=== PATIENT | female | born 1975 | race Caucasian/White ===

== ENCOUNTER 2018-06-21 14:11 | Emergency (ER) | payer OTHER, SELFPAY ==
[2018-06-21 15:45] VITALS: BP 94/62; PULSE 65; RESP 14; TEMP 36.8; O2SAT 99; BMI 19.3
[2018-06-21 17:25] VITALS: BP 89/59; PULSE 73; RESP 16; O2SAT 98
[2018-06-21 17:46] LABS: Add Manual Diff / Slide Review NO; Basophils Absolute Auto 100 /uL (0-100); Basophils Percent Auto 0.9 % (0-2); Eosinophils Absolute Auto 200 /uL (0-450); Eosinophils Percent Auto 2.2 % (2-4); Hematocrit 38.3 % (36-46); Hemoglobin 12.8 g/dL (12.0-16.0); Lymphocytes Absolute Auto 2000 /uL (1100-4500); Lymphocytes Percent Auto 26.2 % (25-40); Mean Corpuscular HGB Conc 33.4 % (30-36); Mean Corpuscular Hemoglobin 32.1 PG (26-34); Monocytes Absolute Auto 600 /uL (0-900); Monocytes Percent Auto 8.4 % (3-14); Neutrophils Absolute Auto 4800 /uL (1500-7000); Neutrophils Percent Auto 62.3 % (50-75); Platelet Count 229 X10^3/uL (150-400); Red Blood Cell Count 3.99 X10^6/uL (4.0-5.2); White Blood Cell Count 7.7 X10^3/uL (4.5-11.0)
[2018-06-21 17:49] LABS: INR 1.1 (0.9-1.3); Prothrombin Time 12.2 SECONDS (10.1-12.7)
[2018-06-21 17:52] LABS: PTT Partial Thromboplastin Tim 29 SECONDS (26.4-36.2)
[2018-06-21 17:55] LABS: Alanine Aminotransferase 40 IU/L (9-52); Albumin 4.2 g/dL (3.5-5.0); Albumin Globulin Ratio 1.6 (1.0-2.8); Alkaline Phosphatase 39 U/L (38-126); Aspartate Aminotransferase 23 IU/L (14-36); BUN Creatinine Ratio 13.8 (6-22); Bilirubin Total 0.3 mg/dL (0.2-1.3); Blood Urea Nitrogen 11 mg/dL (7-17); Calcium 9.2 mg/dL (8.4-10.2); Carbon Dioxide 23 mmol/L (22-32); Chloride 106 mmol/L (98-107); Estimated Glomerular Filt Rate > 60.0 mL/min (>60); Globulin 2.7 g/dL (1.7-4.1); Glucose 97 mg/dL (70-100); HEMOLYSIS < 15 (0-50); Potassium 3.7 mmol/L (3.4-5.1); Sodium 138 mmol/L (137-145); Total Protein 6.9 g/dL (6.3-8.2)
[2018-06-21 18:04] VITALS: BP 100/66; PULSE 70; RESP 14; O2SAT 98
--- NOTE | 2018-06-21 18:15 | ED.FEMALEGU ---
HPI - Female Genitourinary General Chief complaint: Vaginal Bleeding Stated complaint: states unusual bleeding and abdominal cramping Time Seen by Provider: 06/21/18 18:09 Source: patient and family Mode of arrival: ambulatory Limitations: no limitations History of Present Illness HPI Narrative: 43F Smoker with history of ovarian cyst presents with her daughter and a chief complaint of vaginal bleeding for the past week. She says it is light and certainly is not bleeding through a pad per hour or even close. She is not dizzy or weak or lightheaded. She denies chest pain or shortness of breath. She denies any vaginal discharge, dysuria, frequency or urgency. She does have some vague suprapubic discomfort that has set in over the past day or 2. She denies any new medications or alterations in hormonal therapies. Her last period was 2 and half weeks ago and was normal. MD Complaint: vaginal bleeding Location: suprapubic Quality: Aching Duration: intermittent Relieving factors: none Exacerbating factors: movement Vaginal discharge: blood Patient : No Associated symptoms: denies other symptoms Related Data Home Medications Medication Instructions Recorded Confirmed methocarbamol 1 tab PO DAILY 06/21/18 06/21/18 tramadol 1 tab PO Q4-8H PRN 06/21/18 06/21/18 Previous Rx's Medication Instructions Recorded ketorolac 10 mg PO Q6H PRN #14 tab 06/21/18 Allergies Allergy/AdvReac Type Severity Reaction Status Date / Time latex Allergy Mild Hives Verified 06/21/18 19:18 Review of Systems Constitutional Denies chills, Denies fever(s), Denies lethargy and Denies weakness Eyes Denies change in vision, Denies eye discharge, Denies irritation and Denies loss of vision ENT Ears, Nose, Mouth, and Throat: Denies change in voice, Denies neck pain and Denies sore throat Cardiovascular Denies chest pain, Denies irregular heart rhythm, Denies lightheadedness, Denies palpitations, Denies dyspnea, Denies dyspnea on exertion and Denies orthopnea Respiratory Denies cough, Denies dyspnea, Denies dyspnea on exertion and Denies wheezing Gastrointestinal Gastrointestinal: Denies abdominal pain, Denies change in bowel habits, Denies diarrhea, Denies nausea and Denies vomiting Genitourinary Reports abnormal vaginal bleeding, Denies hematuria, Denies flank pain, Denies urinary incontinence and Denies urinary urgency Musculoskeletal Denies neck pain Integumentary/Breasts Denies pruritus, Denies erythema, Denies rash and Denies wounds Neurologic Denies confusion, Denies loss of vision and Denies weakness Psychiatric Denies anxiety, Denies confusion, Denies depression, Denies homicidal ideation and Denies suicidal ideation Endocrine Denies palpitations Hematologic/Lymphatic Denies easy bruising Allergic/Immunologic Denies wheezing [facility] Medical History Migraine (Acute) Social History Smoking Status: Current every day smoker Social History Smoking Status: Current every day smoker Exam Narrative Exam Narrative: 43-year-old female appears stated age. In no obvious or significant distress Initial Vital Signs Initial Vital Signs: Vital Signs Temperature 98.3 F 06/21/18 15:45 Pulse Rate 65 06/21/18 15:45 Respiratory Rate 14 06/21/18 15:45 Blood Pressure 94/62 06/21/18 15:45 Pulse Oximetry 99 06/21/18 15:45 Const General: cooperative and well developed Nutritional Appearance: well nourished Orientation: alert, awake, oriented x3 and not confused HENMT Head: normal to inspection Nose: external nose normal Face and sinus: normal facial exam Eyes General: appearance normal, both eyes and all related structures Pupils: PERRL EOM: EOM intact bilaterally Chest Chest: normal inspection of the chest Resp Effort & Inspection: normal respiratory effort, able to speak in complete sentences, no respiratory distress and no use of accessory muscles Auscultation: clear to auscultation bilaterally, no rales, no rhonchi and no wheezes Cardio Rate: regular rate Rhythm: regular rhythm Heart Sounds: no click, no gallops, no murmurs and no rubs Pulses: normal peripheral pulses GI Inspection: non-distended Palpation: soft, no hepatosplenomegaly, No guarding, No pulsatile mass and No tender Auscultation: normal bowel sounds Back/Spine/Pelvis Back: No CVA tenderness Cervical Spine: cervical ROM normal and No pain with cervical ROM Thoracic/Lumbar Spine: thoracic and lumbar spine normal to inspection Skin General: no rashes or lesions noted, No jaundice and No petechiae Neuro General: alert, oriented x3, gait normal and no focal motor deficits Speech: speech normal Psych Appearance: well kempt Mental Status: mental status grossly normal Attitude: cooperative Thought Content: normal and suicidality Judgment: judgment good Course Orders Ordered: ED Orders 06/21/18 16:35 Complete Blood Count AUTO DIFF Stat Comprehensive Metabolic Panel Stat Partial Thromboplastin Time Stat Prothrombin Time INR Stat 06/21/18 18:15 US pelvic complete Stat 06/21/18 18:25 Urine Culture Stat Urine Microscopic Stat Vital Signs - 8 hr 06/21/18 17:25 06/21/18 18:04 06/21/18 19:47 Pulse Rate 73 70 60 Respiratory Rate 16 14 14 Blood Pressure [Right Arm] 89/59 L 100/66 99/61 Pulse Oximetry 98 98 99 MDM - Female Genitourinary Medical Records Attestation: I reviewed the patient's medical records. Lab Data Attestation: I reviewed the patient's lab results. Result diagrams: 06/21/18 16:35 06/21/18 16:35 Lab Results 06/21/18 06/21/18 06/21/18 Range/Units 16:35 16:35 16:35 WBC 7.7 (4.5-11.0) X10^3/uL RBC 3.99 L (4.0-5.2) X10^6/uL Hgb 12.8 (12.0-16.0) g/dL Hct 38.3 (36-46) % MCV 96.0 (80-100) fL MCH 32.1 (26-34) PG MCHC 33.4 (30-36) % RDW 13.0 (11.6-14.8) % Plt Count 229 (150-400) X10^3/uL Neut % (Auto) 62.3 (50-75) % Lymph % (Auto) 26.2 (25-40) % [facility] % (Auto) 8.4 (3-14) % Eos % (Auto) 2.2 (2-4) % Baso % (Auto) 0.9 (0-2) % Neut # (Auto) 4800 (8676-1828) /uL Lymph # (Auto) 2000 (1530-9795) /uL [facility] # (Auto) 600 (0-900) /uL Eos # (Auto) 200 (0-450) /uL Baso # (Auto) 100 (0-100) /uL PT 12.2 (10.1-12.7) SECONDS INR 1.1 (0.9-1.3) APTT 29 (26.4-36.2) SECONDS Sodium 138 (137-145) mmol/L Potassium 3.7 (3.4-5.1) mmol/L Chloride 106 (98-107) mmol/L Carbon Dioxide 23 (22-32) mmol/L BUN 11 (7-17) mg/dL Creatinine 0.80 (0.52-1.04) mg/dL Estimated GFR > 60.0 (>60) mL/min BUN/Creatinine Ratio 13.8 (6-22) Glucose 97 (70-100) mg/dL Calcium 9.2 (8.4-10.2) mg/dL Total Bilirubin 0.3 (0.2-1.3) mg/dL AST 23 (14-36) IU/L ALT 40 (9-52) IU/L Alkaline Phosphatase 39 (38-126) U/L Total Protein 6.9 (6.3-8.2) g/dL Albumin 4.2 (3.5-5.0) g/dL Globulin 2.7 (1.7-4.1) g/dL Albumin/Globulin Ratio 1.6 (1.0-2.8) Urine RBC (0-5/HPF) Urine WBC (0-5/HPF) Ur Squamous Epith Cells Amorphous Sediment Urine Bacteria (None) Ur Culture Indicated? 06/21/18 Range/Units 18:25 WBC (4.5-11.0) X10^3/uL RBC (4.0-5.2) X10^6/uL Hgb (12.0-16.0) g/dL Hct (36-46) % MCV (80-100) fL MCH (26-34) PG MCHC (30-36) % RDW (11.6-14.8) % Plt Count (150-400) X10^3/uL Neut % (Auto) (50-75) % Lymph % (Auto) (25-40) % [facility] % (Auto) (3-14) % Eos % (Auto) (2-4) % Baso % (Auto) (0-2) % Neut # (Auto) (5878-1858) /uL Lymph # (Auto) (1059-1080) /uL [facility] # (Auto) (0-900) /uL Eos # (Auto) (0-450) /uL Baso # (Auto) (0-100) /uL PT (10.1-12.7) SECONDS INR (0.9-1.3) APTT (26.4-36.2) SECONDS Sodium (137-145) mmol/L Potassium (3.4-5.1) mmol/L Chloride (98-107) mmol/L Carbon Dioxide (22-32) mmol/L BUN (7-17) mg/dL Creatinine (0.52-1.04) mg/dL Estimated GFR (>60) mL/min BUN/Creatinine Ratio (6-22) Glucose (70-100) mg/dL Calcium (8.4-10.2) mg/dL Total Bilirubin (0.2-1.3) mg/dL AST (14-36) IU/L ALT (9-52) IU/L Alkaline Phosphatase (38-126) U/L Total Protein (6.3-8.2) g/dL Albumin (3.5-5.0) g/dL Globulin (1.7-4.1) g/dL Albumin/Globulin Ratio (1.0-2.8) Urine RBC 0-1/hpf (0-5/HPF) Urine WBC 0-1/hpf (0-5/HPF) Ur Squamous Epith Cells 0-1 /hpf Amorphous Sediment 3+ Urine Bacteria Many (>30) H (None) Ur Culture Indicated? Specimen cultured Point of Care Testing Test Results Negative Urine Dip Bedside Urine Glucose Negative Bedside Urine Bilirubin - Negative Bedside Urine Ketone - Negative Urine Specific [place] 1.015 Bedside Urine Occult Blood + Bedside Urine pH 8.0 Bedside Urine Protein - Negative Bedside Urine Urobilinogen - Negative Bedside Urine Nitrite - Negative Bedside Urine Leukocytes - Negative Esterase Imaging Data US Pelvis: Radiologist's impression: [address] [address] Ultrasound Report Signed Patient: Gabrielle Fragoso GMR#: [id number] : 1975Acct:[id number] Age/Sex: 43 / FDate of Service: 06/21/18 Loc: ED Accession Number: [id number] Procedure: US pelvic complete Ordering Provider: Cade Houser D.O. PROCEDURE: US PELVIC COMPLETE INDICATIONS: VAGINAL BLEEDING TECHNIQUE: Real-time scanning was performed of the pelvic organs, with image documentation. Additional endovaginal scanning was necessary due to incomplete visualization of the adnexal and endometrial structures by transabdominal scanning. COMPARISON: None. FINDINGS: Transabdominal scanning: Limited scanning through the kidneys shows no hydronephrosis. No pathologic free abdominal or pelvic fluid. Endovaginal scanning: Uterus: Uterus is normal in size at 8.0 x 4.2 x 5.9 cm. The endometrium measures 6 mm in combined thickness. Ovaries: Right ovary measures 4.0 x 3.1 x 4.2 cm. There is an avascular 3.2 cm hypoechoic right ovarian mass versus complicated cyst. Left ovary measures 3.6 x 2.5 x 3.4 cm. Similar to the right side, there is a avascular 3.0 cm hypoechoic left ovarian mass versus complicated cyst. IMPRESSION: Pelvic ultrasound without acute abnormalities. Bilateral ovarian avascular hypoechoic lesions which may represent a solid mass versus complicated cyst versus hemorrhagic cyst. These measure 3.2 cm on the right and 3.0 cm on the left. Recommend followup pelvic ultrasound in 6-12 weeks to document stability versus resolution. Dictated by: Sulaiman Freeman M.D. on 06/21/2018 at 20:11 Approved by: Sulaiman Freeman M.D. on 06/21/2018 at 20:14 Discharge Plan Departure Patient Disposition: Home Clinical Impression: Vaginal bleeding Discharge Date/Time: 06/21/18 20:25 Interventions: ED Discharge Assessment Last Done: 06/21/18 20:24 Instructions: DI for Vaginal Bleeding Activity Restrictions/Additional Instructions: *You have been diagnosed with [ vaginal bleeding and pelvic pain] *What to do: *Take medications as directed: your prescription has been electronically transmitted to the [facility] at your request *Follow up with your primary care provider in 2-3 days, call for an appointment. Let them know you were seen in the Emergency Department and that we ask that you be seen in follow up. Ultrasound notes ovarian cyst vs. mass and radiology recommends a repeat Ultrasound in 6-12 weeks to evaluate for resolution *Return to ER if you should have any new, worsening or concerning symptoms Prescriptions: New ketorolac 10 mg tablet 10 mg PO Q6H PRN (Reason: pain) Qty: 14 RF: 0 No Action methocarbamol 500 mg tablet 1 tab PO DAILY RF: 0 tramadol 50 mg tablet 1 tab PO Q4-8H PRN (Reason: Pain (Scale Score 7-10)) RF: 0
[2018-06-21 18:36] LABS: RBC Urine 0-1/HPF (0-5/HPF)
[2018-06-21 18:37] LABS: Amorphous Sediment Urine 3+; Bacteria Urine Many (>30); Culture Indicated Urine Specimen Cultured; Squamous Epithelial Cell Urine 0-1 /HPF; WBC Urine 0-1/HPF (0-5/HPF)
[2018-06-21 19:47] VITALS: BP 99/61; PULSE 60; RESP 14; O2SAT 99
--- NOTE | 2018-06-21 20:21 | ED_ITS ---
HPI - Female Genitourinary General Chief complaint: Vaginal Bleeding Stated complaint: states unusual bleeding and abdominal cramping Time Seen by Provider: 06/21/18 18:09 Source: patient and family Mode of arrival: ambulatory Limitations: no limitations History of Present Illness HPI Narrative: 43F Smoker with history of ovarian cyst presents with her daughter and a chief complaint of vaginal bleeding for the past week. She says it is light and certainly is not bleeding through a pad per hour or even close. She is not dizzy or weak or lightheaded. She denies chest pain or shortness of breath. She denies any vaginal discharge, dysuria, frequency or urgency. She does have some vague suprapubic discomfort that has set in over the past day or 2. She denies any new medications or alterations in hormonal therapies. Her last period was 2 and half weeks ago and was normal. MD Complaint: vaginal bleeding Location: suprapubic Quality: Aching Duration: intermittent Relieving factors: none Exacerbating factors: movement Vaginal discharge: blood Patient : No Associated symptoms: denies other symptoms Related Data Home Medications Medication Instructions Recorded Confirmed methocarbamol 1 tab PO DAILY 06/21/18 06/21/18 tramadol 1 tab PO Q4-8H PRN 06/21/18 06/21/18 Previous Rx's Medication Instructions Recorded ketorolac 10 mg PO Q6H PRN #14 tab 06/21/18 Allergies Allergy/AdvReac Type Severity Reaction Status Date / Time latex Allergy Mild Hives Verified 06/21/18 19:18 Review of Systems Constitutional Denies chills, Denies fever(s), Denies lethargy and Denies weakness Eyes Denies change in vision, Denies eye discharge, Denies irritation and Denies loss of vision ENT Ears, Nose, Mouth, and Throat: Denies change in voice, Denies neck pain and Erich es sore throat Cardiovascular Denies chest pain, Denies irregular heart rhythm, Denies lightheadedness, Denies palpitations, Denies dyspnea, Denies dyspnea on exertion and Denies orthopnea Respiratory Denies cough, Denies dyspnea, Denies dyspnea on exertion and Denies wheezing Gastrointestinal Gastrointestinal: Denies abdominal pain, Denies change in bowel habits, Denies diarrhea, Denies nausea and Denies vomiting Genitourinary Reports abnormal vaginal bleeding, Denies hematuria, Denies flank pain, Denies urinary incontinence and Denies urinary urgency Musculoskeletal Denies neck pain Integumentary/Breasts Denies pruritus, Denies erythema, Denies rash and Denies wounds Neurologic Denies confusion, Denies loss of vision and Denies weakness Psychiatric Denies anxiety, Denies confusion, Denies depression, Denies homicidal ideation and Denies suicidal ideation Endocrine Denies palpitations Hematologic/Lymphatic Denies easy bruising Allergic/Immunologic Denies wheezing PFSH Medical History Migraine (Acute) Social History Smoking Status: Current every day smoker Social History Smoking Status: Current every day smoker Exam Narrative Exam Narrative: 43-year-old female appears stated age. In no obvious or significant distress Initial Vital Signs Initial Vital Signs: Vital Signs Temperature 98.3 F 06/21/18 15:45 Pulse Rate 65 06/21/18 15:45 Respiratory Rate 14 06/21/18 15:45 Blood Pressure 94/62 06/21/18 15:45 Pulse Oximetry 99 06/21/18 15:45 Const General: cooperative and well developed Nutritional Appearance: well nourished Orientation: alert, awake, oriented x3 and not confused HENMT Head: normal to inspection Nose: external nose normal Face and sinus: normal facial exam Eyes General: appearance normal, both eyes and all related structures Pupils: PERRL EOM: EOM intact bilaterally Chest Chest: normal inspection of the chest Resp Effort & Inspection: normal respiratory effort, able to speak in complete sentences, no respiratory distress and no use of accessory muscles Auscultation: clear to auscultation bilaterally, no rales, no rhonchi and no wheezes Cardio Rate: regular rate Rhythm: regular rhythm Heart Sounds: no click, no gallops, no murmurs and no rubs Pulses: normal peripheral pulses GI Inspection: non-distended Palpation: soft, no hepatosplenomegaly, No guarding, No pulsatile mass and No tender Auscultation: normal bowel sounds Back/Spine/Pelvis Back: No CVA tenderness Cervical Spine: cervical ROM normal and No pain with cervical ROM Thoracic/Lumbar Spine: thoracic and lumbar spine normal to inspection Skin General: no rashes or lesions noted, No jaundice and No petechiae Neuro General: alert, oriented x3, gait normal and no focal motor deficits Speech: speech normal Psych Appearance: well kempt Mental Status: mental status grossly normal Attitude: cooperative Thought Content: normal and suicidality Judgment: judgment good Course Orders Ordered: ED Orders 06/21/18 16:35 Complete Blood Count AUTO DIFF Stat Comprehensive Metabolic Panel Stat Partial Thromboplastin Time Stat Prothrombin Time INR Stat 06/21/18 18:15 US pelvic complete Stat 06/21/18 18:25 Urine Culture Stat Urine Microscopic Stat Vital Signs - 8 hr 06/21/18 17:25 06/21/18 18:04 06/21/18 19:47 Pulse Rate 73 70 60 Respiratory Rate 16 14 14 Blood Pressure [Right Arm] 89/59 L 100/66 99/61 Pulse Oximetry 98 98 99 MDM - Female Genitourinary Medical Records Attestation: I reviewed the patient's medical records. Lab Data Attestation: I reviewed the patient's lab results. Result diagrams: 06/21/18 16:35 06/21/18 16:35 Lab Results 06/21/18 06/21/18 06/21/18 Range/Units 16:35 16:35 16:35 WBC 7.7 (4.5-11.0) X10^3/uL RBC 3.99 L (4.0-5.2) X10^6/uL Hgb 12.8 (12.0-16.0) g/dL Hct 38.3 (36-46) % MCV 96.0 (80-100) fL MCH 32.1 (26-34) PG MCHC 33.4 (30-36) % RDW 13.0 (11.6-14.8) % Plt Count 229 (150-400) X10^3/uL Neut % (Auto) 62.3 (50-75) % Lymph % (Auto) 26.2 (25-40) % [place] % (Auto) 8.4 (3-14) % Eos % (Auto) 2.2 (2-4) % Baso % (Auto) 0.9 (0-2) % Neut # (Auto) 4800 (8228-4593) /uL Lymph # (Auto) 2000 (0764-0003) /uL [place] # (Auto) 600 (0-900) /uL Eos # (Auto) 200 (0-450) /uL Baso # (Auto) 100 (0-100) /uL PT 12.2 (10.1-12.7) SECONDS INR 1.1 (0.9-1.3) APTT 29 (26.4-36.2) SECONDS Sodium 138 (137-145) mmol/L Potassium 3.7 (3.4-5.1) mmol/L Chloride 106 (98-107) mmol/L Carbon Dioxide 23 (22-32) mmol/L BUN 11 (7-17) mg/dL Creatinine 0.80 (0.52-1.04) mg/dL Estimated GFR > 60.0 (>60) mL/min BUN/Creatinine Ratio 13.8 (6-22) Glucose 97 (70-100) mg/dL Calcium 9.2 (8.4-10.2) mg/dL Total Bilirubin 0.3 (0.2-1.3) mg/dL AST 23 (14-36) IU/L ALT 40 (9-52) IU/L Alkaline Phosphatase 39 (38-126) U/L Total Protein 6.9 (6.3-8.2) g/dL Albumin 4.2 (3.5-5.0) g/dL Globulin 2.7 (1.7-4.1) g/dL Albumin/Globulin Ratio 1.6 (1.0-2.8) Urine RBC (0-5/HPF) Urine WBC (0-5/HPF) Ur Squamous Epith Cells Amorphous Sediment Urine Bacteria (None) Ur Culture Indicated? 06/21/18 Range/Units 18:25 WBC (4.5-11.0) X10^3/uL RBC (4.0-5.2) X10^6/uL Hgb (12.0-16.0) g/dL Hct (36-46) % MCV (80-100) fL MCH (26-34) PG MCHC (30-36) % RDW (11.6-14.8) % Plt Count (150-400) X10^3/uL Neut % (Auto) (50-75) % Lymph % (Auto) (25-40) % [place] % (Auto) (3-14) % Eos % (Auto) (2-4) % Baso % (Auto) (0-2) % Neut # (Auto) (8018-9318) /uL Lymph # (Auto) (9209-2950) /uL [place] # (Auto) (0-900) /uL Eos # (Auto) (0-450) /uL Baso # (Auto) (0-100) /uL PT (10.1-12.7) SECONDS INR (0.9-1.3) APTT (26.4-36.2) SECONDS Sodium (137-145) mmol/L Potassium (3.4-5.1) mmol/L Chloride (98-107) mmol/L Carbon Dioxide (22-32) mmol/L BUN (7-17) mg/dL Creatinine (0.52-1.04) mg/dL Estimated GFR (>60) mL/min BUN/Creatinine Ratio (6-22) Glucose (70-100) mg/dL Calcium (8.4-10.2) mg/dL Total Bilirubin (0.2-1.3) mg/dL AST (14-36) IU/L ALT (9-52) IU/L Alkaline Phosphatase (38-126) U/L Total Protein (6.3-8.2) g/dL Albumin (3.5-5.0) g/dL Globulin (1.7-4.1) g/dL Albumin/Globulin Ratio (1.0-2.8) Urine RBC 0-1/hpf (0-5/HPF) Urine WBC 0-1/hpf (0-5/HPF) Ur Squamous Epith Cells 0-1 /hpf Amorphous Sediment 3+ Urine Bacteria Many (>30) H (None) Ur Culture Indicated? Specimen cultured Point of Care Testing Test Results Negative Urine Dip Bedside Urine Glucose Negative Bedside Urine Bilirubin - Negative Bedside Urine Ketone - Negative Urine Specific [place] 1.015 Bedside Urine Occult Blood + Bedside Urine pH 8.0 Bedside Urine Protein - Negative Bedside Urine Urobilinogen - Negative Bedside Urine Nitrite - Negative Bedside Urine Leukocytes - Negative Esterase Imaging Data US Pelvis: Radiologist's impression: [address] [address] Ultrasound Report Signed Patient: Gabrielle Fragoso GMR#: [id number] : 1975Acct:[id number] Age/Sex: 43 / FDate of Service: 06/21/18 Loc: ED Accession Number: [id number] Procedure: US pelvic complete Ordering Provider: Cade Houser D.O. PROCEDURE: US PELVIC COMPLETE INDICATIONS: VAGINAL BLEEDING TECHNIQUE: Real-time scanning was performed of the pelvic organs, with image documentation. Additional endovaginal scanning was necessary due to incomplete visualization of the adnexal and endometrial structures by transabdominal scanning. COMPARISON: None. FINDINGS: Transabdominal scanning: Limited scanning through the kidneys shows no hydronephrosis. No pathologic free abdominal or pelvic fluid. Endovaginal scanning: Uterus: Uterus is normal in size at 8.0 x 4.2 x 5.9 cm. The endometrium measures 6 mm in combined thickness. Ovaries: Right ovary measures 4.0 x 3.1 x 4.2 cm. There is an avascular 3.2 cm hypoechoic right ovarian mass versus complicated cyst. Left ovary measures 3.6 x 2.5 x 3.4 cm. Similar to the right side, there is a avascular 3.0 cm hypoechoic left ovarian mass versus complicated cyst. IMPRESSION: Pelvic ultrasound without acute abnormalities. Bilateral ovarian avascular hypoechoic lesions which may represent a solid mass versus complicated cyst versus hemorrhagic cyst. These measure 3.2 cm on the right and 3.0 cm on the left. Recommend followup pelvic ultrasound in 6-12 weeks to document stability versus resolution. Dictated by: Sulaiman Freeman M.D. on 06/21/2018 at 20:11 Approved by: Sulaiman Freeman M.D. on 06/21/2018 at 20:14 Discharge Plan Departure Patient Disposition: Home Clinical Impression: Vaginal bleeding Discharge Date/Time: 06/21/18 20:25 Interventions: ED Discharge Assessment Last Done: 06/21/18 20:24 Instructions: DI for Vaginal Bleeding Activity Restrictions/Additional Instructions: *You have been diagnosed with [ vaginal bleeding and pelvic pain] *What to do: *Take medications as directed: your prescription has been electronically transmitted to the [facility] at your request *Follow up with your primary care provider in 2-3 days, call for an appointment. Let them know you were seen in the Emergency Department and that we ask that you be seen in follow up. Ultrasound notes ovarian cyst vs. mass and radiology recommends a repeat Ultrasound in 6-12 weeks to evaluate for resolution *Return to ER if you should have any new, worsening or concerning symptoms Prescriptions: New ketorolac 10 mg tablet 10 mg PO Q6H PRN (Reason: pain) Qty: 14 RF: 0 No Action methocarbamol 500 mg tablet 1 tab PO DAILY RF: 0 tramadol 50 mg tablet 1 tab PO Q4-8H PRN (Reason: Pain (Scale Score 7-10)) RF: 0
== END 2018-06-21 20:25 | disposition home or self-care (01) ==
PROVIDERS: Emergency Medicine; Emergency Provider Emergency Medicine
DX: N93.9 Abnormal uterine and vaginal bleeding, unspecified (principal)
CPT/HCPCS: 36591; 76830; 76856; 80053; 81003; 81015; 81025; 85025; 85610; 85730; 87077; 87086; 87186; 99283; 99284

== ENCOUNTER → 2018-08-02 15:30 | Outpatient (CLI) | payer OTHER, SELFPAY ==
--- NOTE | 2018-08-02 | DI.US.S_ITS ---
PROCEDURE: US PELVIC COMPLETE INDICATIONS: Unspecified ovarian cyst, right side TECHNIQUE: Real-time scanning was performed of the pelvic organs, with image documentation. Additional endovaginal scanning was necessary due to incomplete visualization of the adnexal and endometrial structures by transabdominal scanning. COMPARISON: [facility], , US PELVIC COMPLETE, 06/21/2018, 17:37. FINDINGS: Transabdominal scanning: Limited scanning through the kidneys shows no hydronephrosis. No pathologic free abdominal or pelvic fluid. Endovaginal scanning: Uterus: Uterus is normal in size at 5.0 x 4.0 by 8.3 cm. The endometrium measures 7.8 mm in combined thickness. Ovaries: Right ovary measures 2.4 x 2.7 x 3.2 cm, and contains a solid complex masslike structure that measures up to 2.5 x 1.9 x 2.1 cm previously measuring 3.2 x 3.0 x 3.1 cm. This may represent an involuting hemorrhagic ovarian cyst that appears solid. He left ovary measures 4.1 x 2.4 x 3.8 cm and also contains a solid-appearing mass without internal or elevated peripheral vascularity measuring up to 3.0 x 2.5 x 2.4 cm. This previously measured 3.0 x 2.2 x 2.2 cm and therefore has not definitely improved or worsened in appearance. IMPRESSION: Followup assessment of the bilateral ovarian complex possibly solid masses is recommended in 6-8 weeks. If these do not significantly improved bilaterally further then gynecologic consultation is recommended. Excisional biopsy may be necessary. The right-sided lesion has definitely reduced in size, the left sided lesion has not changed. Dictated by: Jovan Schuster M.D. on 08/02/2018 at 17:25 Approved by: Jovan Schuster M.D. on 08/02/2018 at 17:27
== END ==
PROVIDERS: PCP Nurse Practitioner Family; Visit Provider Family Medicine
DX: N83.9 Noninflammatory disorder of ovary, fallopian tube and broad ligament, unspecified (principal)
CPT/HCPCS: 76856

== ENCOUNTER → 2019-12-18 11:58 | Outpatient (CLI) | payer OTHER, SELFPAY | PROVIDERS: PCP Nurse Practitioner Family; Visit Provider Physician Assistant | DX: R30.0 Dysuria (principal) | CPT/HCPCS: 87086 ==

== ENCOUNTER → 2021-01-15 12:20 | Outpatient (CLI) | payer OTHER, SELFPAY | PROVIDERS: PCP Nurse Practitioner Family; Visit Provider Nurse Practitioner Family | DX: N34.3 Urethral syndrome, unspecified (principal); N89.8 Other specified noninflammatory disorders of vagina | CPT/HCPCS: 87086; 87210 ==

== ENCOUNTER → 2021-08-29 15:02 | Outpatient (CLI) | payer OTHER, SELFPAY ==
[2021-08-29 17:56] LABS: Cholesterol 208 mg/dL (140-199); HDL Cholesterol 51 mg/dL (40-60); LDL Cholesterol Calculated 126 mg/dL (<100); Triglycerides 156 mg/dL (35-150)
[2021-08-29 18:25] LABS: TSH w/ Reflex to FT4 0.77 uIU/mL (0.47-4.68)
== END ==
PROVIDERS: PCP Family Medicine; Referring Provider Family Medicine; Visit Provider Family Medicine
DX: E78.2 Mixed hyperlipidemia (principal); F41.9 Anxiety disorder, unspecified; G43.009 Migraine without aura, not intractable, without status migrainosus
CPT/HCPCS: 36415; 80061; 84443

== ENCOUNTER → 2022-07-06 11:17 | Outpatient (CLI) | payer OTHER, SELFPAY | PROVIDERS: PCP Family Medicine; Visit Provider Nurse Practitioner Family | DX: J02.9 Acute pharyngitis, unspecified (principal) | CPT/HCPCS: 87070 ==

== ENCOUNTER → 2022-10-16 07:07 | Outpatient (CLI) | payer OTHER, SELFPAY ==
[2022-10-16 09:15] LABS: Add Manual Diff / Slide Review NO; Basophils Absolute Auto 100 /uL (0-100); Basophils Percent Auto 0.9 % (0-2); Eosinophils Absolute Auto 200 /uL (0-450); Eosinophils Percent Auto 2.1 % (2-4); Hematocrit 37.3 % (36-46); Hemoglobin 13.1 g/dL (12.0-16.0); Lymphocytes Absolute Auto 1900 /uL (1100-4500); Lymphocytes Percent Auto 19.7 % (25-40); Mean Corpuscular Hemoglobin 32.3 PG (26-34); Mean Corpuscular Volume 92.2 fL (80-100); Monocytes Absolute Auto 1000 /uL (0-900); Monocytes Percent Auto 10.3 % (3-14); Neutrophils Absolute Auto 6400 /uL (1500-7000); Platelet Count 353 X10^3/uL (150-400); Red Blood Cell Count 4.05 X10^6/uL (4.0-5.2); Red Cell Distribution Width 13.4 % (11.6-14.8); White Blood Cell Count 9.6 X10^3/uL (4.5-11.0)
[2022-10-16 09:41] LABS: Alanine Aminotransferase 48 IU/L (<35); Albumin 4.3 g/dL (3.5-5.0); Albumin Globulin Ratio 1.7 (1.0-2.8); Alkaline Phosphatase 55 U/L (38-126); Aspartate Aminotransferase 43 IU/L (14-36); Bilirubin Total 0.5 mg/dL (0.2-1.3); Blood Urea Nitrogen 14 mg/dL (7-17); Calcium 9.4 mg/dL (8.4-10.2); Carbon Dioxide 22 mmol/L (22-32); Chloride 107 mmol/L (98-107); Cholesterol 193 mg/dL (140-199); Estimated Glomerular Filt Rate > 60 mL/min (>60); Globulin 2.6 g/dL (1.7-4.1); Glucose 81 mg/dL (70-100); HDL Cholesterol 44 mg/dL (40-60); HEMOLYSIS < 15 (0-50); LDL Cholesterol Calculated 124 mg/dL (<100); Potassium 4.2 mmol/L (3.4-5.1); Sodium 139 mmol/L (137-145); Total Protein 6.9 g/dL (6.3-8.2); Triglycerides 126 mg/dL (35-150)
[2022-10-17 12:04] LABS: Interpretation Negative (Negative)
== END ==
PROVIDERS: PCP Family Medicine; Referring Provider Family Medicine; Visit Provider Family Medicine
DX: D72.819 Decreased white blood cell count, unspecified (principal); E78.2 Mixed hyperlipidemia; F41.9 Anxiety disorder, unspecified; N93.9 Abnormal uterine and vaginal bleeding, unspecified; K21.9 Gastro-esophageal reflux disease without esophagitis; R10.9 Unspecified abdominal pain; R14.3 Flatulence
CPT/HCPCS: 36415; 80053; 80061; 83013; 85025

== ENCOUNTER → 2022-10-30 14:38 | Outpatient (CLI) | payer OTHER, SELFPAY ==
[2022-10-30 17:02] LABS: TSH w/ Reflex to FT4 0.63 uIU/mL (0.47-4.68)
[2022-10-31 17:28] LABS: Follicle Stimulating Hormone 35.2 mIU/mL
[2022-11-04 19:14] LABS: Estrogen 90 pg/mL (.)
[2022-11-05 08:43] LABS: Percent Free Testosterone 0.77 % (0.50-2.80); Testosterone Free 0.09 ng/dL (0.10-0.85); Testosterone Total 11.1 ng/dL (.)
[2022-11-07 14:36] LABS: % Free Progesterone 2.1 % (.); Free Progesterone <0.21 ng/dL (.); Progesterone, Serum <10 ng/dL (.)
== END ==
PROVIDERS: PCP Family Medicine; Referring Provider Family Medicine; Visit Provider Family Medicine
DX: N93.9 Abnormal uterine and vaginal bleeding, unspecified (principal); R23.2 Flushing; E78.2 Mixed hyperlipidemia; G43.009 Migraine without aura, not intractable, without status migrainosus
CPT/HCPCS: 36415; 82672; 83001; 84144; 84402; 84403; 84443; 84999

== ENCOUNTER → 2022-12-11 15:54 | Outpatient (CLI) | payer OTHER, SELFPAY ==
[2022-12-11 17:19] LABS: Alanine Aminotransferase 26 IU/L (<35); Albumin Globulin Ratio 1.5 (1.0-2.8); Alkaline Phosphatase 37 U/L (38-126); Aspartate Aminotransferase 29 IU/L (14-36); BUN Creatinine Ratio 12.5 (6-22); Bilirubin Total 0.4 mg/dL (0.2-1.3); Blood Urea Nitrogen 12 mg/dL (7-17); Calcium 8.9 mg/dL (8.4-10.2); Carbon Dioxide 19 mmol/L (22-32); Chloride 111 mmol/L (98-107); Estimated Glomerular Filt Rate > 60 mL/min (>60); Globulin 2.7 g/dL (1.7-4.1); Glucose 101 mg/dL (70-100); HEMOLYSIS < 15 (0-50); Potassium 3.9 mmol/L (3.4-5.1); Sodium 140 mmol/L (137-145); Total Protein 6.7 g/dL (6.3-8.2)
== END ==
PROVIDERS: PCP Family Medicine; Referring Provider Family Medicine; Visit Provider Family Medicine
DX: R74.8 Abnormal levels of other serum enzymes (principal)
CPT/HCPCS: 36415; 80053

== ENCOUNTER → 2023-07-02 11:55 | Outpatient (CLI) | payer OTHER, SELFPAY ==
[2023-07-02 13:00] LABS: HEMOLYSIS < 15 (0-50); Iron 110 ug/dL (37-170)
[2023-07-02 13:12] LABS: Percent Iron Saturation 44 % (15-50); Total Iron Binding Capacity 251 ug/dL (265-497); Transferrin 215 mg/dL (206-381)
[2023-07-02 13:36] LABS: Ferritin 30 ng/mL (6-137)
== END ==
PROVIDERS: PCP Family Medicine; Referring Provider Physician Assistant; Visit Provider Physician Assistant
DX: R79.89 Other specified abnormal findings of blood chemistry (principal)
CPT/HCPCS: 36415; 82728; 83540; 83550

== ENCOUNTER 2023-11-03 12:03 | Day surgery (SDC) | payer OTHER, SELFPAY ==
--- NOTE | 2023-11-03 | PATH_ITS ---
[facility] Accession Number: [id number] No. of containers..01 Tissue . 01 Material submitted: . colon - RANDOM COLON . 01 Diagnosis: RANDOM COLON: Colonic mucosa with no diagnostic alterations. No active inflammation, granulomas, dysplasia, or malignancy identified. No evidence of colitis. [facility] 11/05/20231157 Local . 01 Electronically signed: . Ramy Curran MD, Pathologist NPI- [id number] . 01 Gross description: . Received in formalin with two patient identifiers and random colon, are five north soft tissue fragments 0.3 to 0.6 cm in greatest dimension. Submitted in cassette A1. ([id number]) /[facility] 11/05/20231157 Local . 01 Pathologist provided ICD-10: R19.8 . 01 CPT . 789564 Specimen Comment: A courtesy copy of this report has been sent to [phone] Performed at: [address] [facility] [address], [place], [place] [id number] MD Ramy Curran MD Phone: [phone]
[2023-11-03] MEDS: LACTATED RINGERS 1,000 ML 42 ML IV (12:19)
[2023-11-03 12:33] VITALS: BP 112/73; PULSE 84; RESP 14; TEMP 37.2; O2SAT 100
--- NOTE | 2023-11-03 12:46 | P.HP_ITS ---
History of Present Illness History of Present Illness Date Patient Seen: 11/03/23 Time Patient Seen: 12:47 Chief complaint: [facility] Narrative: 48-year-old woman with new chronic diarrhea here for diagnostic colonoscopy. No significant interval change in history/health since September 2023. [facility] Medical History Low body mass index (BMI) Onychomycosis Anxiety Mixed hyperlipidemia Decreased white blood cell count Abnormal vaginal bleeding Screening for malignant neoplasm of breast Encounter for wellness examination in adult Plantar warts (~1980) Seasonal allergies Rheumatic fever Measles Chicken pox History of recurrent ear infection (~1975) Ovarian cyst (~1995) Abnormal Pap smear of cervix (~1995) Migraine (~1990) Family History Father Tuberculosis Mother Hypertension Grandfather Hyperlipidemia Hypertension Grandmother Cancer Social History marital status: details: Pt. lives with her and 2 of her adult children number of children: 3 household members: spouse lives independently: Yes occupational status: employed Smoking Status: Current every day smoker Tobacco: How many years used: 34 quit status: not considering quitting second hand exposure: No alcohol intake: current substance use type: does not use Meds Home Medications and Allergies Home Medications Medication Instructions Recorded Confirmed Type alprazolam 0.25 mg tablet 0.25 mg PO DAILY #6 tabs 09/11/22 11/03/23 Rx Glucometer kit #1 ea 05/12/23 09/24/23 Rx Lancets #1 ea 05/12/23 09/24/23 Rx Test Strips #1 ea 05/12/23 09/24/23 Rx fluoxetine 10 mg capsule 10 mg PO DAILY #90 caps 06/25/23 11/03/23 Rx naproxen 500 mg tablet See Rx Instructions .Route 06/25/23 11/03/23 Rx .COMPLEX #60 tabs rizatriptan 10 mg tablet (Maxalt) 10 mg PO TID PRN migraine headache 06/25/23 11/03/23 Rx #27 tabs blood-glucose meter,continuous #1 ea 08/07/23 09/24/23 Rx (FreeStyle Gale 3 [place]) blood-glucose sensor (FreeStyle #1 ea 08/07/23 09/24/23 Rx Gale 3 Sensor device) hydroxyzine pamoate 25 mg capsule See Rx Instructions .Route 08/24/23 11/03/23 Rx .COMPLEX #60 caps metoclopramide HCl 10 mg tablet 10 mg PO 3XD PRN for 10/01/23 11/03/23 Rx nausea/vomiting #90 tabs topiramate 50 mg tablet See Rx Instructions .Route 10/01/23 11/03/23 Rx .COMPLEX #300 tabs tramadol 50 mg tablet 50 mg PO Q6H PRN pain #90 tabs 11/03/23 11/03/23 Rx Allergies Allergy/AdvReac Type Severity Reaction Status Date / Time latex Allergy Mild Hives Verified 11/03/23 12:25 buspirone AdvReac Severe swelling Verified 11/03/23 12:25 to BLE Exam Vital Signs (past 8 hours): - 11/03/23 12:33 Temperature 99.0 F Pulse Rate 84 Respiratory Rate 14 Blood Pressure 112/73 Pulse Oximetry 100 Oxygen Delivery Method Room Air Oxygen Delivery Method Room Air Narrative Exam Narrative: General adult woman alert oriented no acute distress Chest nonlabored respiration Extremities warm well perfused Assessment & Plan Assessment & Plan narrative: Diagnostic colonoscopy is indicated for altered bowel function. Technical details were discussed. Risks, benefits, alternatives explained. Risks including but not limited to myocardial infarction, aspiration, bleeding, pain, missed lesion, incomplete examination, need for further radiographic studies, intestinal injury, and need for major abdominal surgery were discussed. All questions were answered to their satisfaction, and they are in agreement with this plan. Time-Based Coding :: [TOTAL MINUTES] spent with patient and on the chart (including review of chart, obtaining history, exam, reviewing outside data, placing orders, documenting exam and treatment plan, and counseling patient) on [DATE].
[2023-11-03 13:25] VITALS: BP 108/73; PULSE 69; RESP 18; TEMP 36.2; O2SAT 100
[2023-11-03 13:30] VITALS: BP 102/63; PULSE 82; RESP 20; TEMP 36.2; O2SAT 100
--- NOTE | 2023-11-03 13:32 | P.OP.COLON_ITS ---
Operative Date/Time/Diagnoses Date of procedure: 11/03/23 Time of procedure: 13:32 Pre-op diagnosis: Chronic diarrhea Procedure & Clinicians Study performed: Diagnostic colonoscopy Same procedure as scheduled: Yes Indications: 48-year-old woman chronic diarrhea unknown etiology here for diagnostic colonoscopy Surgeon: Carter Cárdenas Procedure Notes Procedure in detail: The history and physical was performed/updated and the patient is ASA class is 2. The procedure was discussed in detail with the patient. Potential risks complications including infection, bleeding, missed diagnosis, perforation, need for surgery, and were explained. Their questions were answered and informed consent was obtained. Patient was brought to the procedure room and placed standard monitoring equipment. The patient's vital signs were monitored continuously throughout the entire procedure. Prior to starting time-out was performed. The patient was placed in the left lateral recumbent position. Procedural sedation was administered by anesthesia. Examination began with a thorough inspection of the perianal area there was no evidence of fissures, fistulae, external hemorrhoids or cutaneous malignancy. The colonoscopy scope was then placed into the anal canal and was advanced to the cecum, which was identified by the ileocecal valve, the appendiceal orifice and the confluence of the taenia. The scope was then slowly withdrawn examining colon thoroughly in all directions, irrigating it of any residual stool. The scope was retroflexed within the rectum The patient tolerated the procedure well. They will be discharged once criteria are met. The prep was of good/excellent quality. The withdrawl time was 7 minutes. FINDINGS * No obstructing mass * Mild inflammation throughout the colon, possible microscopic colitis. Multiple random colon biopsies taken. No ashwin ulcerations * Tortuous descending colon required scope stiffening and external compression Specimen(s): other (Random colonic biopsy) Impression: Rule out micro colitis Post-procedure Recommendations: Colonoscopy in 10 years Plan for aftercare: Follow up biopsy Disposition: same day surgery
[2023-11-03 13:37] VITALS: BP 104/71; PULSE 68; RESP 14; TEMP 36.2; O2SAT 98
== END 2023-11-03 13:54 | disposition home or self-care (01) ==
PROVIDERS: PCP Family Medicine; Referring Provider Surgery; Visit Provider Surgery
PROC: 0DJD8ZZ Inspection of Lower Intestinal Tract, Via Natural or Artificial Opening Endoscopic (ICD-10-PCS; CPT 45378; principal; 2023-11-03 13:00)
DX: K52.9 Noninfective gastroenteritis and colitis, unspecified (principal)
CPT/HCPCS: 45380; J2704

== ENCOUNTER → 2025-02-23 14:17 | Outpatient (CLI) | payer BC, OTHER, SELFPAY ==
[2025-02-23 15:48] LABS: Alanine Aminotransferase 27 IU/L (<35); Albumin 4.8 g/dL (3.5-5.0); Albumin Globulin Ratio 1.8 (1.0-2.8); Alkaline Phosphatase 69 U/L (38-126); Blood Urea Nitrogen 17 mg/dL (7-17); Calcium 9.8 mg/dL (8.4-10.2); Carbon Dioxide 22 mmol/L (22-32); Chloride 108 mmol/L (98-107); Cholesterol 244 mg/dL (140-199); Estimated Glomerular Filt Rate 54 mL/min (>60); Globulin 2.7 g/dL (1.7-4.1); Glucose 86 mg/dL (70-99); HDL Cholesterol 58 mg/dL (40-60); HEMOLYSIS < 15 (0-50); Potassium 4.1 mmol/L (3.4-5.1); Sodium 141 mmol/L (137-145); Total Protein 7.5 g/dL (6.3-8.2); Triglycerides 299 mg/dL (35-150)
== END ==
PROVIDERS: PCP Family Medicine; Referring Provider Family Medicine; Visit Provider Family Medicine
DX: E78.2 Mixed hyperlipidemia (principal); E86.0 Dehydration; N28.9 Disorder of kidney and ureter, unspecified; G60.0 Hereditary motor and sensory neuropathy; R30.0 Dysuria; Z84.81 Family history of carrier of genetic disease
CPT/HCPCS: 36415; 80053; 80061; 87086